=== PATIENT | female | born 1990 | race Caucasian/White ===

== ENCOUNTER 2017-02-02 14:25 | Emergency (ER) | payer SELFPAY ==
[~2017-02-02] VITALS: Ht 167.6 cm; Wt 100.0 kg
[2017-02-02 14:27] VITALS: BP 136/87
== END 2017-02-02 17:13 | disposition left against medical advice (07) ==
LOC: EMS 14:37
DX: R51 Headache (principal); F15.90 Other stimulant use, unspecified, uncomplicated; F17.210 Nicotine dependence, cigarettes, uncomplicated; Z53.21 Procedure and treatment not carried out due to patient leaving prior to being seen by health care provider